=== PATIENT | male | born 1985 | race Caucasian/White ===

== ENCOUNTER → 2024-12-12 | Outpatient (CLI) | payer OTHER ==
[~2024-12-12] VITALS: Ht 182.9 cm; Wt 115.7 kg
[~2024-12-12] MED LIST: AMLO2.5T4 PO; ceFAZolin 2gm/dext,iso 50mL 50 ML IV ONE; ringers solution, lacted 1,000 ML IV SCH
[2024-12-12 15:42] LABS: MEAN PLATELET VOLUME 8.8 FL (7.4-10.4); RED CELL DISTRIBUTION WIDTH 13.6 % (11.5-14.5)
--- NOTE | 2024-12-12 15:48 | ELECTROCARDIOGRAPH REPORT ---
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 DAVINA Jc Measurements Intervals Ferdinand Rate: 60 P: 67 CT: 172 QRS: 49 QRSD: 106 T: 44 QT: 419 QTc: 419 Interpretive Statements Sinus rhythm Electronically Signed On 12-12-2024 16:40:[address] DAVINA Jc Please click the below link to view image of tracing.
[2024-12-12 16:00] LABS: CREATININE 1.00 MG/DL (0.60-1.10); TOTAL CARBON DIOXIDE 24.2 MMOL/L (24-32); eGFR 83 ML/MIN
== END | disposition home or self-care (01) ==
LOC: LAB 14:42 → EDSTATUS 12-21 10:45
PROVIDERS: ATTEND Urology
DX: Z01.818 Encounter for other preprocedural examination (principal); D49.512 Neoplasm of unspecified behavior of left kidney
CPT/HCPCS: 36415; 80053; 85025; 86885; 86900; 86901; 93005; J7120

== ENCOUNTER 2025-01-24 19:22 | Emergency (ER) | payer OTHER ==
[~2025-01-24] VITALS: Ht 182.9 cm; Wt 120.7 kg
[~2025-01-24 19:22] MED LIST changes: -ceFAZolin 2gm/dext,iso 50mL 50 ML IV ONE; -ringers solution, lacted 1,000 ML IV SCH
[2025-01-24 21:21] LABS: MEAN PLATELET VOLUME 8.8 FL (7.4-10.4); RED CELL DISTRIBUTION WIDTH 13.9 % (11.5-14.5)
[2025-01-24 21:30] LABS: CREATININE 0.97 MG/DL (0.60-1.10); TOTAL CARBON DIOXIDE 24.6 MMOL/L (24-32); eCRCL 111 ML/MIN; eGFR 86 ML/MIN
--- NOTE | 2025-01-24 22:34 | Physician Documentation ---
History of Present Illness ~ Chief Complaint: Flank Pain Stated Complaint: ABD/FLANK PAIN Time Seen by MD: 22:27 HPI Patient presents to the emergency room with left-sided abdominal pain onset of pain this evening. No prior instances. 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 No fevers. He has had nothing for the pain. Denies dysuria Medication Reconciliation Allergies: Coded Allergies: No Known Allergies (Unverified , 12/20/24) Scheduled Amlodipine Besylate (Amlodipine Besylate), 5 MG PO DAILY, (Reported) Review of Systems ROS All review of systems negative except as per HPI Physical Exam Vital Signs: Temperature: 98.2, Heart Rate: 96, Respiratory Rate: 16, BP: 162/93, Pulse Oximetry: 99, Weight: 120.700 Oxygen Flow Rate: 0 Physical Exam General: Patient is awake, alert, oriented x4 in mild distress Head: Normocephalic and atraumatic. Eyes: Conjunctival normal. EOMI. PERRL. ENT: Mucous membranes moist. Neck: Supple, trachea is midline. Chest: Clear to auscultation bilaterally without rales, rhonchi, or wheezes. There is no accessory muscle use or retractions. Cardiac: RRR without murmurs, gallops, or rubs. Abd: Soft, nondistended, no tenderness to palpation to abdomen or flanks. No rash or discoloration Progress Results/Orders Results/Orders Completed Orders - TOMMY CARBAJAL MD Hydrocodone/Apap 5/325mg Tab (Anthony 5/32 (01/24/25 22:35) Ondansetron Disint. Tablet (Zofran Odt T (01/24/25 22:35) Medications Received in ER Medications (Trade) Dose Ordered Sig/Rk Route PRN Reason Start Time Stop Time Status Last Admin Dose Admin (Toradol injection) 15 mg ONCE ONCE IM 01/24/25 22:00 01/24/25 22:01 DC 01/24/25 23:06 15 MG (Anthony 5/325mg tablet) 2 tab ONCE ONCE PO 01/24/25 22:35 01/24/25 22:36 DC 01/24/25 23:05 2 TAB (Zofran ODT tablet) 4 mg ONCE ONCE PO 01/24/25 22:35 01/24/25 22:36 DC 01/24/25 23:08 4 MG Vital Signs 01/24/25 01/24/25 01/24/25 01/24/25 19:29 23:05 23:06 23:10 Temp 98.2 98.2 Pulse 96 84 Resp 16 10 14 10 B/P (MAP) 162/93 132/74 (93) Pulse Ox 99 98 O2 Flow Rate 0 0 01/24/25 01/25/25 23:10 00:30 Temp 98.2 Pulse 69 Resp 10 22 B/P (MAP) 122/66 (84) Pulse Ox 95 O2 Flow Rate 0 Laboratory Tests Test 01/24/25 21:02 01/24/25 23:49 White Blood Count 9.1 Red Blood Count 4.88 Hemoglobin 14.4 Hematocrit 41.7 L Mean Corpuscular Volume 85.5 Mean Corpuscular Hemoglobin 29.5 Mean Corpuscular Hemoglobin Concent 34.6 Red Cell Distribution Width 13.9 Platelet Count 287 Mean Platelet Volume 8.8 Neutrophils (%) (Auto) 62.4 Lymphocytes (%) (Auto) 29.5 Monocytes (%) (Auto) 7.0 Eosinophils (%) (Auto) 0.6 Basophils (%) (Auto) 0.5 Neutrophils # (Auto) 5.6 Lymphocytes # (Auto) 2.7 Monocytes # (Auto) 0.6 Eosinophils # (Auto) 0.1 Basophils # (Auto) 0.0 CBC Comment Sodium Level 141 Potassium Level 3.8 Chloride Level 102 Carbon Dioxide Level 24.6 Anion Gap 14 Blood Urea Nitrogen 13 Creatinine 0.97 Estimated GFR/1.73 m2 86 BUN/Creatinine Ratio 13.4 Glucose Level 103 Calcium Level 9.7 Total Bilirubin 0.3 Aspartate Amino Transf (AST/SGOT) 26 Alanine Aminotransferase (ALT/SGPT) 68 Alkaline Phosphatase 103 Total Protein 8.4 H Albumin 4.3 Globulin 4.1 Albumin/Globulin Ratio 1.0 L Lipase 20 Chemistry Comments Urine Specimen Description Non-specified Urine Color Yellow Urine Clarity Clear Urine pH 6.0 Urine Specific [place] 1.025 Urine Protein Negative Urine Glucose (UA) Negative Urine Ketones 15 H Urine Occult Blood Negative Urine Nitrite Negative Urine Bilirubin Negative Urine Urobilinogen 0.2 Urine Leukocyte Esterase Negative Urine Culture Indicated Not ind Volume Urine Centrifuged 10 ml Urine Comment Medical Decision Making Findings Patient presents to the emergency room with flank pain as per HPI. Differentials include but are not limited to urinary tract infection kidney stone, musculoskeletal pain, referred pain therefore emergent labs and imaging indicated. CT scan reassuring. Patient's pain is improved. Possible capsular pain from patient's reported tumor. Departure Disposition: HOME / SELF CARE / HOMELESS Impression: Primary Impression: Flank pain Condition: Improved Discharge Instructions: Flank Pain, Adult Referrals: NO PRIMARY CARE PROVIDER (PCP) Prescriptions Hydrocodone Bit/Acetaminophen 5/325 MG (Anthony 5/325 MG) 5 Mg/325 Mg Tablet 1-2 TAB PO Q4-6 hours PRN for pain, #20 TAB Prov: TOMMY CARBAJAL MD 01/25/25 Signature Scribe Signature: no scribe Attestation: The note accurately reflects work and decisions made by me.Tommy Carbajal MD 01/25/25 00:55 TOMMY CARBAJAL MD Jan 24, 2025 22:34
--- NOTE | 2025-01-24 22:35 | RADIOLOGY REPORT ---
CLINICAL HISTORY: Left Flank Pain TECHNIQUE: CT of the abdomen and pelvis was performed without IV contrast. This exam was performed according to our departmental dose optimization program. Up-to-date CT equipment and radiation dose reduction techniques are utilized as appropriate. CTDI 36.2 DLP 1765 COMPARISON: None FINDINGS: Abdomen/Pelvis: The spleen, pancreas, adrenal glands, gallbladder, liver, right kidney, bladder, and prostate gland are grossly unremarkable. There is a 7.6 cm isodense left renal lesion. The abdominal aorta is normal in course and caliber. There are no significant atherosclerotic calcifications. There is no free intraperitoneal air or fluid. There is no enlarged abdominal pelvic lymph node. There is no bowel wall thickening or dilatation. The appendix is normal. Other: The imaged lower thorax is unremarkable. No acute osseous abnormality is evident. Impression: No acute noncontrast CT abnormality in the abdomen or pelvis. 7.6 cm indeterminate isodense left renal lesion. Ultrasound correlation recommended. If ultrasound is indeterminate, renal MRI or CT is recommended.
[2025-01-24] MEDS: HYDROcodone/acetaminophen 5mg/325mg tablet PO ONE (23:05)
[2025-01-24] MEDS: ketorolac trometh 15mg/ml vial 15 MG/ML ML IM ONE (23:06)
[2025-01-24] MEDS: ondansetron 4mg rapidly disintigrating tab PO ONE (23:08)
[2025-01-25 00:30] VITALS: BP 122/66
[2025-01-25 00:39] LABS: LEUKOCYTE ESTERASE ,URINE NEGATIVE (Neg); NITRITES, URINE NEGATIVE (Neg); OCCULT BLOOD,URINE NEGATIVE (Neg)
[2025-01-25 00:46] LABS: UA COLLECTION TYPE NON-SPECIFIED
[2025-01-25] MEDS ORDERED: HYDR-3965 PO (00:55)
[2025-01-25 01:05] VITALS: PULSE 92; RESP 16; TEMP 98.2; O2SAT 98
== END 2025-01-25 01:07 | disposition home or self-care (01) ==
LOC: ER 19:23
DX: Z79.899 Other long term (current) drug therapy (principal); R10.9 Unspecified abdominal pain
CPT/HCPCS: 36415; 74176; 80053; 81003; 83690; 85025; 96372; 99285; J1885